=== PATIENT | male | born 1995 | race African-American/Black ===

== ENCOUNTER 2023-10-27 17:17 | Emergency (ER) | payer SELFPAY ==
[2023-10-27] MEDS ORDERED: Ibuprofen 200 MG TAB ONE (18:10)
[2023-10-27] MEDS ORDERED: Acetaminophen 500 MG TAB ONE (18:10)
== END 2023-10-27 19:21 | disposition home or self-care (01) ==
LOC: CSHERS 17:17
DX: J02.9 Acute pharyngitis, unspecified (principal); F17.290 Nicotine dependence, other tobacco product, uncomplicated
CPT/HCPCS: 87081; 87430; 99283